=== PATIENT | female | born 1970 | race Caucasian/White ===

== ENCOUNTER 2018-12-10 01:49 | Emergency (ER) | payer OTHER ==
[~2018-12-10] VITALS: Ht 167.6 cm; Wt 72.6 kg
[2018-12-10] MEDS ORDERED: DEXAMETHASONE SOD PHOSPHATE 10 MG/ML VIAL ONE (02:41)
--- NOTE | 2018-12-10 02:45 | NUR ---
STREP SWAB COLLECTED AND SENT TO LAB
[2018-12-10] MEDS ORDERED: DEXAMETHASONE SOD PHOSPHATE 4 MG/ML VIAL MC ONE (03:00)
--- NOTE | 2018-12-10 03:36 | NUR ---
Patient discharged to home in stable condition. Written and verbal after care instructions given. Patient verbalizes understanding of instruction. Pt ambulatory with a steady gait
[2018-12-10 03:37] VITALS: BP 135/76
== END 2018-12-10 03:38 | disposition home or self-care (01) ==
LOC: ER 01:49
DX: J02.9 Acute pharyngitis, unspecified (principal); F17.200 Nicotine dependence, unspecified, uncomplicated; Z98.890 Other specified postprocedural states; Z90.89 Acquired absence of other organs
CPT/HCPCS: 87070; 87880; 99283; J1100; 86403-TC